=== PATIENT | male | born 1955 | race Caucasian/White ===

== ENCOUNTER 2022-04-12 13:50 | Outpatient (CLI) | payer BC, SELFPAY ==
[2022-04-17 15:47] LABS: Anaplasma phagocyt PCR Not Detected; Babesia microti by PCR Not Detected; Babesia species by PCR Not Detected; Ehrlichia chaffeensis by PCR Not Detected; Ehrlichia ewingii/canis by PCR Not Detected; Ehrlichia muris-like by PCR Not Detected
== END 2022-04-12 13:51 | disposition home or self-care (01) ==
PROVIDERS: PCP Family Medicine; Visit Provider Family Medicine
DX: S20.469A Insect bite (nonvenomous) of unspecified back wall of thorax, initial encounter (principal); W57.XXXA Bitten or stung by nonvenomous insect and other nonvenomous arthropods, initial encounter
CPT/HCPCS: 86618; 87798

== ENCOUNTER 2023-03-27 13:16 | Emergency (ER) | payer MEDICARE, SELFPAY ==
[2023-03-27] VITALS (16 sets, daily range): BP systolic 149–180; BP diastolic 102–133; PULSE 45–74; RESP 16; TEMP 36.6; O2SAT 77–99; BMI 34.4
--- NOTE | 2023-03-27 13:48 | CRLHL7_ITS ---
For Patients: As a result of the Century Cures Act, medical imaging exams and procedure reports are released immediately into your electronic medical record. You may view this report before your referring provider. If you have questions, please contact your health care provider. INDICATION: Vertigo. TECHNIQUE: Multiplanar multisequence noncontrast MR images acquired through the brain. COMPARISON: None. FINDINGS: Prominence of the ventricles and sulci compatible with minimal diffuse cerebral volume loss. No mass effect or midline shift. Few punctate FLAIR hyperintensities in the supratentorial white matter, typical for minimal chronic microvascular ischemic changes. Chronic lacunar infarction inferior left cerebellar hemisphere. No diffusion restriction to suggest acute infarction. No intracranial hemorrhage or pathologic extra-axial fluid collection. The major arterial flow voids of the skullbase are preserved. The globes are symmetric. Small left maxillary sinus retention cyst or polyp. The mastoid air cells are clear. IMPRESSION: 1. No acute infarction, mass effect, or intracranial hemorrhage. 2. Chronic lacunar infarction left cerebellar hemisphere. 3. Minimal chronic microvascular ischemic changes and diffuse cerebral volume loss. Dictated by Lisandro May MD @ 03/27/2023 3:06:26 PM (Electronically Signed)
--- NOTE | 2023-03-27 13:50 | ED.GENADULT ---
HPI - General Adult General Date Seen: 03/27/23 Chief complaint: Dizziness/Vertigo Stated complaint: Dizzy, disoriented, feeling clammy, vomited Time Seen by Provider: 03/27/23 13:23 Source: patient Mode of arrival: ambulatory Limitations: no limitations History of Present Illness HPI narrative: Patient is a 68-year-old male who denies previous significant medical history. He golfed today, his says he walked 18 holes and then as he was walking back to his car after golfing he developed a sensation that he was veering to the right, associated with some dizziness. He did vomit once after he got home. His golf mates drove his car home. He has not had any difficulty with hearing or speech, no facial droop or weakness, no history of similar complaints. Symptoms lasted 1/2 hour to an hour but do seem to be quite a bit better now he is walking without difficulty at this point. He denies any headache, neck pain, chest pain or other complaints. No medications aside from vitamins although he did take 2 baby aspirin at home. He does not smoke, denies significant alcohol use. Here today with his . Related Data Home Medications Medication Instructions Recorded Confirmed No Known Home Medications 03/27/23 03/27/23 Allergies Allergy/AdvReac Type Severity Reaction Status Date / Time Penicillins Allergy Verified 04/12/22 13:43 Review of Systems Status of ROS: Reports: 10 or more systems reviewed and unremarkable except as noted in History and below [facility] Medical History Tick bite of back wall of thorax ?S20.469A - Insect bite (nonvenomous) of unspecified back wall of thorax, initial encounter (ICD-10) ?W57.XXXA - Bitten or stung by nonvenomous insect and other nonvenomous arthropods, initial encounter (ICD-10) Social History Smoking Status: Never smoker How often do you have a drink containing alcohol: never AUDIT-C Alcohol total score: 0 Non-prescribed substance use: denies use Exam Narrative: Exam Narrative: Vital signs as noted above. In general, an alert, well-appearing patient. Head: Normocephalic, atraumatic. Eyes: Pupils are equal reactive. Extraocular movements are full. No nystagmus. Conjunctivae are normal. ENT: Mucous membranes are moist. Neck: Supple without lymphadenopathy. Heart: Regular rate and rhythm. No murmur or rub. Lungs: Clear bilaterally. No increased work of breathing, crackles or wheezes. Abdomen: Soft and nontender. No organomegaly. Extremities: Well perfused. No edema. No calf tenderness. Pulses intact. Neurologic: Patient is alert and oriented to person and place. Speech is fluent. Face is symmetric. Moves all extremities equally. Strength is 5 of 5 bilaterally. Cerebellar function intact by finger-nose testing and heel-honeycutt testing. Affect: Normal. Skin: Warm and dry. Well perfused. Const: Vital Signs, click to edit/add: Vital Signs - 24 hr 03/27/23 13:35 03/27/23 13:45 03/27/23 14:00 Temperature 97.9 F Pulse Rate 50 L 45 L Pulse Rate [Pulse Oximeter] 74 Respiratory Rate 16 Blood Pressure Blood Pressure [Ri ght Upper Arm] 180/102 H Pulse Oximetry 96 97 96 Oxygen Delivery Me thod Room Air 03/27/23 14:02 03/27/23 14:03 03/27/23 15:04 Temperature Pulse Rate 52 L 50 L Pulse Rate [Pulse Oximeter] Respiratory Rate Blood Pressure 167/112 H Blood Pressure [Ri ght Upper Arm] Pulse Oximetry 95 94 77 L Oxygen Delivery Me thod 03/27/23 15:10 03/27/23 15:15 03/27/23 15:30 Temperature Pulse Rate 53 L 56 L 47 L Pulse Rate [Pulse Oximeter] Respiratory Rate Blood Pressure 149/133 H Blood Pressure [Ri ght Upper Arm] Pulse Oximetry 95 94 94 Oxygen Delivery Dc thod 03/27/23 15:45 03/27/23 16:00 03/27/23 16:00 Temperature Pulse Rate 55 L 57 L Pulse Rate [Pulse Oximeter] Respiratory Rate Blood Pressure Blood Pressure [Ri ght Upper Arm] Pulse Oximetry 95 92 97 Oxygen Delivery Me thod 03/27/23 16:15 03/27/23 17:03 03/27/23 17:15 Temperature Pulse Rate 71 53 L 49 L Pulse Rate [Pulse Oximeter] Respiratory Rate Blood Pressure Blood Pressure [Ri ght Upper Arm] Pulse Oximetry 95 99 92 Oxygen Delivery Me thod Documenting provider has reviewed patient's vital signs: yes Course Course ED Course: EKG done on arrival by my review shows mild sinus bradycardia, ventricular rate of 59 beats per minute. He has an occasional blocked PAC, 1 PVC on his tracing. No other acute findings. At this time he does not feel symptomatic enough that he needs treatment. He is hypertensive here, 180/102 the time of my initial exam. He says his blood pressures sometimes borderline elevated at the doctor's but he has never been told that he should be on blood pressure medications. Plan at this time will be to observe for further resolution of symptoms, MRI to rule out an acute ischemic event, some basic blood work all pending. MRI notable for an elevated white blood cell count as well as an elevated hemoglobin, ketones and concentrated urine so this may be related to an element of hemoconcentration. Electrolytes are unremarkable. Point of care troponin was 0.03. He had an MRI of the brain read by Radiology, this is read as follows:IMPRESSION: 1. No acute infarction, mass effect, or intracranial hemorrhage. 2. Chronic lacunar infarction left cerebellar hemisphere. 3. Minimal chronic microvascular ischemic changes and diffuse cerebral volume loss. I discussed these findings with Dr. Nunez, who was on-call for Neurology at [place]. There is nothing on the MRI to suggest an acute ischemic event today, however the old infarction in the cerebellum does I think continue to raise the question of whether symptoms today might have been ischemic rather than simple positional vertigo. Her recommendation was that we evaluate the blood vessels with CT angiogram and if that was clear that he could go home, daily aspirin, primary care follow-up and consider neuro follow-up at some point in the future given the old stroke. I have reviewed all of this with the patient. He did have a CT angiogram which by radiology read was negative for any acute findings such as high-grade stenosis or aneurysm. Plan will be discharge home, for now I think if he has acute abrupt onset, recurrence of symptoms, I would recommend return to the ER since the etiology of this is a little unclear at this time. Otherwise, primary care follow-up as discussed above. Right now he is asymptomatic. Vital Signs Vital signs: Initial Vital Signs Temperature 97.9 F 03/27/23 13:35 Temperature Source Temporal Artery Scan 03/27/23 13:35 Pulse Rate 74 03/27/23 13:35 Pulse Rhythm Regular 03/27/23 13:35 Respiratory Rate 16 03/27/23 13:35 Blood Pressure 180/102 H 03/27/23 13:35 Blood Pressure Mean 128 H 03/27/23 13:35 Blood Pressure Position Sitting 03/27/23 13:35 Pulse Oximetry 96 03/27/23 13:35 Oxygen Delivery Method Room Air 03/27/23 13:35 Vital Signs Temperature 97.9 F 03/27/23 13:35 Pulse Rate 74 03/27/23 13:35 Respiratory Rate 16 03/27/23 13:35 Blood Pressure 180/102 H 03/27/23 13:35 Pulse Oximetry 96 03/27/23 13:35 Oxygen Delivery Method Room Air 03/27/23 13:35 Temperature 97.9 F 03/27/23 13:35 Pulse Rate 49 L 03/27/23 17:15 Respiratory Rate 16 03/27/23 13:35 Blood Pressure 149/133 H 03/27/23 15:10 Pulse Oximetry 92 03/27/23 17:15 Oxygen Delivery Method Room Air 03/27/23 13:35 Medical Decision Making Lab Data Labs: Lab Results 03/27/23 03/27/23 03/27/23 Range/Units 13:25 13:49 14:08 WBC 14.08 H (4.50-11.00) K/uL RBC 5.94 H (4.30-5.90) m/uL Hgb 19.1 H (13.5-17.5) gm/dL Hct 53.8 H (37.0-53.0) % MCV 91 (80-100) fL MCH 32 (26-34) pg MCHC 36 (32-36) gm/dL RDW Coeff of Alfredito 13.0 (11.5-15.5) % Plt Count 204 (140-440) K/uL Neut % (Auto) 85.2 H (42.0-72.0) % Lymph % (Auto) 9.9 L (20-44) % [place] % (Auto) 4.0 (0.0-11.0) % Eos % (Auto) 0.6 (0.0-7.0) % Baso % (Auto) 0.1 (0.0-3.0) % Neut # (Auto) 12.00 H (1.7-7.0) K/uL Lymph # (Auto) 1.40 (0.90-2.90) K/uL [place] # (Auto) 0.60 (0.00-0.90) K/UL Eos # (Auto) 0.10 (0.00-0.50) K/uL Baso # (Auto) 0.00 (0.00-0.30) K/uL Abs Immat Gran (auto) 0.00 (0.00-0.30) K/uL Imm/Tot Granulo (auto) 0.2 % Sodium 140 (135-149) mmol/L Potassium 3.3 L (3.6-5.1) mmol/L Chloride 107 (96-114) mmol/L Carbon Dioxide 20 (20-32) mmol/L Anion Gap 13 (7-15) mEq/L BUN 14 (7-30) mg/dL Creatinine 0.9 (0.5-1.5) mg/dL Estimated Creat Clear 75.03 Estimated GFR 94 ml/min Glucose 134 H (60-115) mg/dL Calcium 10.1 (8.4-10.6) mg/dL C-Reactive Protein 0.7 (0.5-1.0) mg/dL Urine Color [place] A (Yellow) Urine Appearance Clear (Clear) Urine pH 5.5 (5.0-8.5) Ur Specific [place] >= 1.030 (1.000-1.030) Urine Protein 1+ A (Negative) Urine Glucose (UA) Negative (Negative) Urine Ketones Trace A (Negative) Urine Blood 2+ A (Negative) Urine Nitrite Negative (Negative) Urine Bilirubin 1+ A (Negative) Urine Urobilinogen 0.2 (0.2-1.0) Ur Leukocyte Esterase Negative (Negative) Urine RBC 0-2 (0-2) Urine WBC 0-2 (0-5) Ur Squamous Epith Cells None (None-Few) Urine Bacteria None (None) POC Troponin I 0.03 (0.01-0.04) ng/ml Discharge Plan Discharge Clinical Impression: Vertigo, History of lacunar cerebrovascular accident Patient Disposition: Home, Self-Care Condition: Improved Instructions: Vertigo (DC) Additional Instructions: Primary care follow-up in the next week or so for recheck are symptoms, blood pressure, other risk factor modification. Regular aspirin daily. Return for recurrent or new symptoms. Prescriptions: No Action No Known Home Medications Follow Up/Referrals: Mietsh Pineda MD [Referring] - Stand Alone Forms: Addictive Info Instructions
[2023-03-27 13:57] LABS: Appearance Urine Clear (Clear); Bilirubin Urine 1+ (Negative); Blood Urine 2+ (Negative); Color Urine Orange (Yellow); Glucose Urine Negative (Negative); Ketones Urine Trace (Negative); Leukocyte Esterase Urine Negative (Negative); Nitrite Urine Negative (Negative); Protein Urine 1+ (Negative); Specific Gravity Urine >= 1.030 (1.000-1.030); Urobilinogen Urine 0.2 (0.2-1.0); pH Urine 5.5 (5.0-8.5)
[2023-03-27 14:19] LABS: Basophils Percent Auto 0.1 % (0.0-3.0); Eosinophils Percent Auto 0.6 % (0.0-7.0); Hematocrit 53.8 % (37.0-53.0); Hemoglobin* 19.1 gm/dL (13.5-17.5); Immature Granulocytes Pct Auto 0.2 %; Lymphocytes Percent Auto 9.9 % (20-44); Mean Corpuscular HGB Conc 36 gm/dL (32-36); Mean Corpuscular Hemoglobin 32 pg (26-34); Mean Corpuscular Volume 91 fL (80-100); Neutrophils Percent Auto 85.2 % (42.0-72.0); Platelet Count* 204 K/uL (140-440); Red Blood Count 5.94 m/uL (4.30-5.90); White Blood Count* 14.08 K/uL (4.50-11.00)
[2023-03-27 14:22] LABS: RBC Urine 0-2 (0-2); WBC Urine 0-2 (0-5)
[2023-03-27 14:30] LABS: Slide Review Reflex No
[2023-03-27 14:36] LABS: Chloride* 107 mmol/L (96-114); Potassium* 3.3 mmol/L (3.6-5.1); Sodium* 140 mmol/L (135-149)
[2023-03-27 14:39] LABS: Creatinine* 0.9 mg/dL (0.5-1.5); Est. Creatinine Clearance* 75.03; Estimated Glomerular Filt Rate 94 ml/min
[2023-03-27 14:40] LABS: Anion Gap 13 mEq/L (7-15); Blood Urea Nitrogen* 14 mg/dL (7-30); Calcium* 10.1 mg/dL (8.4-10.6); Carbon Dioxide* 20 mmol/L (20-32); Glucose* 134 mg/dL (60-115)
[2023-03-27 14:42] LABS: Troponin, Point-of-Care* 0.03 ng/ml (0.01-0.04)
[2023-03-27 14:43] LABS: C Reactive Protein* 0.7 mg/dL (0.5-1.0)
--- NOTE | 2023-03-27 15:42 | CRLHL7_ITS ---
For Patients: As a result of the Century Cures Act, medical imaging exams and procedure reports are released immediately into your electronic medical record. You may view this report before your referring provider. If you have questions, please contact your health care provider. INDICATION: Vertigo. TECHNIQUE: CTA neck with contrast bolus tracking, 3D angiographic rendering using maximum intensity projection (MIP) and images permanently archived. FINDINGS: There is no significant carotid artery stenosis or dissection. There is no significant vertebral artery stenosis or dissection. The soft tissues of the neck are within normal limits. The cervical spine is in normal alignment. IMPRESSION: Unremarkable neck CTA. No significant carotid or vertebral artery stenosis or dissection. Please note that all CT scans at this facility use dose modulation, iterative reconstruction, and/or weight-based dosing when appropriate to reduce radiation dose to as low as reasonably achievable. Dictated by René Knight MD @ 03/28/2023 10:12:22 AM (Electronically Signed)
--- NOTE | 2023-03-27 15:42 | CRLHL7_ITS ---
For Patients: As a result of the Century Cures Act, medical imaging exams and procedure reports are released immediately into your electronic medical record. You may view this report before your referring provider. If you have questions, please contact your health care provider. INDICATION: Vertigo. TECHNIQUE: CTA head with contrast bolus tracking, 3D angiographic rendering using maximum intensity projection (MIP) and images permanently archived. FINDINGS: There is normal opacification of the intracranial vasculature. There is no large vessel occlusion. No aneurysm is identified. IMPRESSION: Unremarkable head CTA. No large vessel occlusion. Please note that all CT scans at this facility use dose modulation, iterative reconstruction, and/or weight-based dosing when appropriate to reduce radiation dose to as low as reasonably achievable. Dictated by René Knight MD @ 03/28/2023 10:11:21 AM (Electronically Signed)
[2023-03-27] MEDS: 0.9 % SODIUM CHLORIDE 1000 ml 1,000 ML IV (16:22)
== END 2023-03-27 17:57 | disposition home or self-care (01) ==
PROVIDERS: Emergency Provider Emergency Medicine
DX: R42 Dizziness and giddiness (principal); Z86.73 Personal history of transient ischemic attack (TIA), and cerebral infarction without residual deficits
CPT/HCPCS: 36415; 70496; 70498; 70551; 80048; 81001; 84484; 85025; 86140; 93005; 94761; 96360; 99284; 99285; J7030; Q9967

== ENCOUNTER 2023-06-06 08:24 | Outpatient (CLI) | payer MEDICARE, SELFPAY | END 2023-06-06 08:25 | disposition home or self-care (01) | LOC: NFLDREF 06-07 02:52 | PROVIDERS: PCP Family Medicine; Referring Provider Family Medicine; Visit Provider Family Medicine | DX: I10 Essential (primary) hypertension (principal); Z12.5 Encounter for screening for malignant neoplasm of prostate; Z13.6 Encounter for screening for cardiovascular disorders | CPT/HCPCS: 80053; 80061; 84153 ==

== ENCOUNTER 2023-06-21 07:56 | Outpatient (CLI) | payer MEDICARE, SELFPAY ==
--- NOTE | 2023-06-21 09:31 | W.ANESCHARGE ---
Anesthesia Charges Start Date/Time Anesthesia Start Date: 06/21/23 Anesthesia Start Time: 08:45 Stop Date/Time Anesthesia Stop Date: 06/21/23 Anesthesia Stop Time: 09:28
== END 2023-06-21 07:57 | disposition home or self-care (01) ==
LOC: OP CLINIC 07:56
PROVIDERS: PCP Family Medicine; Visit Provider Surgery
DX: Z12.11 Encounter for screening for malignant neoplasm of colon (principal); K63.5 Polyp of colon; K57.30 Diverticulosis of large intestine without perforation or abscess without bleeding; Z86.010 Personal history of colon polyps
CPT/HCPCS: 00811; 45385; 88305; J2704

== ENCOUNTER 2023-11-13 14:45 | Outpatient (RCR) | payer MEDICARE, SELFPAY ==
--- NOTE | 2023-10-03 09:52 | PT.OPE ---
PT [place] [facility] Eval PT [facility] Outpatient Eval Start: 10/02/23 15:43 Freq: Status: Active Protocol: Document 10/02/23 15:43 RIO (Rec: 10/02/23 15:44 RIO [id number]) E-signed By Crow Hardy DPT, MS Physical Therapy Outpatient Evaluation Insurance Information Recert Due Date 12/31/23 Insurance Name Medicare B Medical Diagnosis Dorsalgia, unspecified Treating Diagnosis R-sided LS pain with radicular sxs, decreased B LS and LE flexibility, gait dysfunction, imbalance, and B LE and core weakness Subjective Subjective Pt is a pleasant 68 y.o male who presents to PT with c/o severe R-sided LS pain with radicular sxs of insidious onset after golfing on 09/19/23 . Intensity of pain has improved but he continues to experience episodes of high level of sharp R-sided LS pain . 4th time golfing this year and did not experience sxs until the next morning. Describes numbness and tingling across his R lateral and anterior thigh extending distally to his knee. Denies bowel or bladder changes or catching his toes while walking. Typically very active around his yard and golfs 4- 5x per week during warm months . One previous incident of similar sxs on his L 5 years ago with PT being very helpful . Lying in his back with B LE resting on a chair helps relieve sxs. Pt hopes to resolve pain to be able to return to walking for exercise , yardwork and golfing with minimal sxs. PMH includes prostate CA in remission and LS OA. AGGR factors: extended standing, stair climbing, walking, lifting, carrying objects, twisting driving >10 minutes. ALLEV factors: sitting, stretching, ice and heat. Pain Comments 2-03/18 Current Work Status Retired Preferred Name [employer] Precautions Therapy Limitations/Systems Review Not Limited Objective Functional Test Performed & Score Modified OSWESTRY: 54% Assessment Assessment/Impression Pt displays signs and symptoms consistent with mechanical LS pain with R-sided radicular sxs. No distinct LS directional preference of movement with flex and ext movements providing relief or aggravation of sxs. Negative slump and neural tension testing. R LS muscular tightness with decreased rotation with R hip and piriformis tightness combined with R quad and glute weakness appearing to be contributing to sxs. Excellent response to MT, stretching, recumbent biking and strengthening exercises with decreased sxs following today?s session. He will benefit greatly from continued skilled therapy to address these limitations. Primary Functional Limitations Extended standing, stair climbing, walking, lifting, carrying objects, twisting driving >10 minutes Plan of Care Rehabilitation Potential Excellent Physical Therapy Goals Short-term goals to be completed in 4 weeks: 1. Pt will be able to climb > 12 stairs reciprocally with no elevation in LS sxs to safely reach his bedroom. 2. Pt will report >50% improvement in LS pain and radicular sxs with all daily activities. 3. Pt will report improved tolerance to driving >10 min with no elevation in R-sided LS sxs to safely drive to stores and medical appointments. Long-term goals to be completed in 10 weeks: 1. Pt will be independent and compliant with HEP 2. 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 3. Pt will be report resolution of R-sided LS pain with sitting to perform work duties. 4. Pt will report >50% improvement in modified OSWESTRY to increase tolerance to functional daily activities. Coordination/Communication With Referral Source Treatment Plan/Direct Interventions Joint Mobilization,Manual Therapy,Therapeutic Exercises Frequency/Duration 1x per week for at least 6-10 visits, decreasing frequency as able. Patient Will Be Discharged From Therapy Completion of LTG(s),Skills Plateau,Independent w/HEP, Independently Progressing Evaluation Billing Untimed Code Treatment Minutes 25 Complexity Moderate Certification Information Initial Certification Date 10/02/23 Ending Certification Date 12/31/23 Provider Signature Shows Agreement With POC & Medical Necessity Physician Signature & Date Requested Please Sign/Date Here Physician Comment/Change : Physician NPI Number #
== END 2024-03-12 23:59 | disposition home or self-care (01) ==
PROVIDERS: PCP Family Medicine; Visit Provider Family Medicine
DX: M54.9 Dorsalgia, unspecified (principal); Z51.89 Encounter for other specified aftercare
CPT/HCPCS: 97110; 97140; 97162

== ENCOUNTER 2024-04-30 07:40 | Outpatient (CLI) | payer MEDICARE, SELFPAY ==
--- OUTSIDE RECORDS SUMMARY | 2024-05-01 08:38 | XMS_ITS | Clinical Summary ---
Author Organization [facility] Address [place], [place] [address] Care Team Providers Care Clinical Engineering Director Name Role Phone Pcp, No Primary Care Provider Unavailabl e Allergies Active Allergy Reactions Criticality Noted Date Comments Penicillins *Unknown 08/21/2005 Medications Medication Sig Dispensed Refills Start Date End Date Status IBUPROFEN 200 MG ORAL TAB Take one tablet 3-4 times daily with food as needed for pain (OTC) ? 0 12/21/2004 Active Active Problems Problem Noted Date Diagnosed Date Nuclear senile cataract of both eyes 09/22/2022 Meibomian gland dysfunction (MGD) of both eyes 0 09/22/2022 Hyperopia of both eyes with astigmatism and pres byopia 01/28/2018 Plantar fasciitis 02/14/2012 PHYSICAL GENERAL EXAM 12/21/2004 OBESITY 12/21/2004 Immunizations Name Administration Dates Next Due Td (Age >=7 Years) 12/21/2004 Family History Medical History Relation Name Comments Alcohol/Drug Maternal Grandmother Psychiatric illness Maternal Grandmother Other Maternal Uncle 1 TB Other Maternal Uncle 2 suicide Relation Name Status Comments Maternal Grandmother Maternal Uncle 1 Maternal Uncle 2 Social History Tobacco Use Types Packs/Day Years Used Date Smoking Tobacco: Never Smokeless Tobacco: Never Alcohol Use Standard Drinks/Week Comments Not Asked 0 (1 standard drink = 0.6 oz pur e alcohol) Alcoholic Drinks/day: 0 Sex and Gender Information Value Date Recorded Sex Assigned at Not on file Gender Identity Not on file Sexual Orientation Not on file Obstetrics History Last Filed Vital Signs Vital Sign Reading Time Taken Comments Blood Pressure 143/97 01/28/2018 2:15 PM CDT Pulse 43 01/28/2018 2:15 PM CDT Temperature - - Respiratory Rate 18 10/31/2012 2:52 PM CDT Oxygen Saturation - - Inhaled Oxygen Concentration - - Weight 111.6 kg (246 lb) 10/23/2006 1:20 PM CDT Height 175.3 cm (5' 9) 10/23/2006 1:20 PM CDT Body Mass Index 36.33 10/23/2006 1:20 PM CDT Plan of Treatment Upcoming Encounters Date Type Department Care Team (Late st Contact Info) Description 05/13/2024 8:00 AM 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 MEDICAL 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 Office Visit [facility] [id number] [place], [place] [id number] [place] [address] [place] [address] Health Maintenance Due Date Last Done Comments Tdap 02/06/1968 Depression screening for age 12+ 1969 BMI (ht and wt on same day) for age 18+ 1975 Hepatitis C screening for ag e 18-79 1975 Colonoscopy through age 75 2002 Zoster (shingles) series for age 50+ (1 of 2) 2007 Lipids for age 45-75 12/21/2009 12/21/2004 Tetanus booster 12/21/2014 12/21/2004 Medicare Wellness for age 65+ 2022 Pneumococcal series for age 65+ (1 of 1 - PCV) 2022 COVID-19 vaccine series ( season) 2024 05/18/2022, 01/17/2022, 05/30/2021, Additional history exists Influenza for age 65+ 03/09/2024 Procedures Procedure Name Priority Date/Time Associated Diagnosis Comments LIPID PANEL Timed 12/21/2004 12:27 PM CDT from Last 3 Months or Most Recently Relevant to Health Maintenance Results * (ABNORMAL) LIPID PANEL (12/21/2004 12:27 PM CDT) CHOLESTEROL,TOTAL 206(H) 110 - 199 mg/dL [facility] TRIGLYCERIDES 95 40 - 149 mg/dL [facility] HDL CHOLESTEROL 37(L) 41 - 75 mg/dL [facility] CHOL/HDL RATIO 5.57(H) <4.51 [facility] LDL CHOLESTEROL 150(H) 60 - 130 mg/dL [facility] PATIENT STATUS Fasting [facility] 12/21/2004 12:2 7 PM CDT 12/21/2004 8:07 PM CDT Binu Nice MD CHEMISTRY [facility] [place] ZIP [address] [address] from Last 3 Months or Most Recently Relevant to Health Maintenance Care Teams Clinical Engineering Director Relationship Specialty Start Date End Date Pcp, No . PCP - General 02/07/12
== END 2024-04-30 07:41 | disposition home or self-care (01) ==
LOC: NFLDREF 05-01 08:32
PROVIDERS: PCP Family Medicine; Referring Provider Family Medicine; Visit Provider Family Medicine
DX: E78.5 Hyperlipidemia, unspecified (principal); I10 Essential (primary) hypertension; Z12.5 Encounter for screening for malignant neoplasm of prostate
CPT/HCPCS: 80053; 80061; G0103

== ENCOUNTER 2024-06-02 07:46 | Outpatient (CLI) | payer MEDICARE, SELFPAY ==
--- OUTSIDE RECORDS SUMMARY | 2024-06-02 07:50 | XMS_ITS | Clinical Summary ---
Author Organization [facility] Address [place], [place] [address] Care Team Providers Care Air Conditioning Supervisor Name Role Phone Pcp, No Primary Care Provider Unavailabl e Allergies Active Allergy Reactions Criticality Noted Date Comments Penicillins *Unknown 08/21/2005 Medications Medication Sig Dispensed Refills Start Date End Date Status IBUPROFEN 200 MG ORAL TAB Take one tablet 3-4 times daily with food as needed for pain (OTC) ? 0 12/21/2004 Active lisinopril-hydrochloro thiazide (10-12.5 mg) tablet (PRINZIDE; ZESTORETIC) Take 1 Tablet by mouth once daily. 03/28/2024 Active Active Problems Problem Noted Date Diagnosed Date Nuclear senile cataract of both eyes 09/22/2022 Meibomian gland dysfunction (MGD) of both eyes 0 09/22/2022 Hyperopia of both eyes with astigmatism and pres byopia 01/28/2018 Plantar fasciitis 02/14/2012 PHYSICAL GENERAL EXAM 12/21/2004 OBESITY 12/21/2004 Encounters Date Type Department Care Team Description 05/13/2024 8:00 AM WOOD CALKER Office [facility] [id number] [place] [address] Chun Bill OD Eye Exam ([facility]) 05/13/2024 Travel from Last 3 Months Immunizations Name Administration Dates Next Due Td [...] 10/23/2006 1:20 PM CDT Plan of Treatment Health Maintenance Due Date Last Done Comments [...] 65+ (1 of 1 - PCV) 2022 Influenza for age 65+ 03/09/2024 COVID-19 vaccine series Completed 04/10/20 24, 06/06/2023, 05/18/2022, Additional history exists Procedures Procedure Name Priority Date/Time Associated Diagnosis Comments LIPID PANEL Timed 12/21/2004 12:27 PM CDT from Last 3 Months or Most Recently Relevant to Health Maintenance Results * (ABNORMAL) LIPID PANEL (12/21/2004 12:27 PM CDT) CHOLESTEROL,TOTAL 206(H) 110 - 199 mg/dL [facility] TRIGLYCERIDES 95 40 - 149 mg/dL [facility] HDL CHOLESTEROL 37(L) 41 - 75 mg/dL [facility] CHOL/HDL RATIO 5.57(H) <4.51 [facility] LDL CHOLESTEROL 150(H) 60 - 130 mg/dL [facility] PATIENT STATUS Fasting [facility] 12/21/2004 12:2 7 PM CDT 12/21/2004 8:07 PM CDT Binu Nice MD CHEMISTRY [facility] [place] ZIP [address] [place] [id number] from Last 3 Months or Most Recently Relevant to Health Maintenance Care Teams Air Conditioning Supervisor Relationship Specialty Start Date End Date Pcp, No . PCP - General 02/07/12
--- NOTE | 2024-06-02 09:13 | W.ANESCHARGE ---
Anesthesia Charges Start Date/Time Anesthesia Start Date: 06/02/24 Anesthesia Start Time: 08:56 Stop Date/Time Anesthesia Stop Date: 06/02/24 Anesthesia Stop Time: 09:15
--- NOTE | 2024-06-02 09:19 | W.ANESCHARGE ---
Anesthesia Charges Start Date/Time Anesthesia Start Date: 06/02/24 Anesthesia Start Time: 08:56 Stop Date/Time Anesthesia Stop Date: 06/02/24 Anesthesia Stop Time: 09:15
== END 2024-06-02 07:47 | disposition home or self-care (01) ==
LOC: OP CLINIC 07:46
PROVIDERS: PCP Family Medicine; Visit Provider Internal Medicine
DX: R13.10 Dysphagia, unspecified (principal); K22.89 Other specified disease of esophagus; K20.90 Esophagitis, unspecified without bleeding
CPT/HCPCS: 00731; 43239; 88305; J2704

== ENCOUNTER 2025-05-15 07:44 | Outpatient (CLI) | payer MEDICARE, SELFPAY | END 2025-05-15 07:45 | disposition home or self-care (01) | LOC: NFLDREF 05-18 08:26 | PROVIDERS: PCP Family Medicine; Referring Provider Family Medicine; Visit Provider Family Medicine | DX: Z12.5 Encounter for screening for malignant neoplasm of prostate (principal); E78.5 Hyperlipidemia, unspecified | CPT/HCPCS: 80053; 80061; G0103 ==